=== PATIENT | female | born 1955 | race Caucasian/White ===

== ENCOUNTER → 2023-12-25 08:06 | Outpatient (REF) | payer MEDICARE, OTHER, SELFPAY | LOC: RAD 08:06 | PROVIDERS: ATTENDING PHYSICIAN Family Medicine | DX: R10.11 Right upper quadrant pain (principal) | CPT/HCPCS: 76700 ==

== ENCOUNTER → 2024-02-15 08:35 | Outpatient (REF) | payer MEDICARE, SELFPAY | LOC: SDSPAT 08:35 | PROVIDERS: ATTENDING PHYSICIAN Surgery; FAMILY PHYSICIAN Family Medicine | DX: K80.50 Calculus of bile duct without cholangitis or cholecystitis without obstruction (principal) | CPT/HCPCS: 36415; 93005 ==

== ENCOUNTER 2024-02-29 06:26 | Day surgery (SDC) | payer MEDICARE, SELFPAY ==
[2024-02-15 09:16] VITALS: BMI 22.3
[2024-02-29] VITALS (10 sets, daily range): BP systolic 107–165; BP diastolic 74–98; BMI 22.3
[2024-02-29] MEDS: TYLENOL 1000 MG PO (13:20)
[2024-02-29] MEDS: NORMOSOL-R 1000 IV (13:21)
--- NOTE | 2024-02-29 14:32 | W.SUR.PREOP ---
Pre-Operative Surgical Note
-
I have examined this patient prior to the performance of the scheduled procedure.
The patient's condition is unchanged from the time of the current History and
Physical and the patient is able to undergo the scheduled procedure.
--- NOTE | 2024-02-29 15:39 | W.IMMPOSTOP ---
Surgical Immed Post Op Note
-
Primary Surgeon: Rad Woody MD
Assisting Surgeon: None
Pre-op Diagnosis: Biliary colic
Post-op Diagnosis: Biliary colic, umbilical hernia
Procedure Performed:
1. Laparoscopic cholecystectomy with cholangiogram.
2. Open umbilical hernia repair (primary)
Anesthesia Type: General
Specimen / Cultures: Gallbladder and contents
Estimated Blood Loss: 7 cc
Complications: None
Operative Findings: 1.5 cm umbilical hernia defect containing preperitoneal fat. 12 mm Cathy placed through this opening. Critical view of safety obtained prior to cholangiogram which demonstrated no filling defects.
--- NOTE | 2024-02-29 15:41 | OR.RPT ---
Operative Report
Operative Report
Patient Name: Melanie Landon
: 1955
Date of Operation: 02/29/2024
Preoperative Diagnosis: Symptomatic Cholelithiasis
Postoperative Diagnosis: Symptomatic cholelithiasis, umbilical hernia
Procedure(s):
1. Laparoscopic Cholecystectomy With Cholangiogram
2. Open umbilical hernia repair (primary)
Surgeon(s):
Dr. Woody
Animal Control Specialist(s):
Munir Toubat
Anesthesia: General
Estimated Blood Loss: 7 cc
Urine Output: None
Drains/Lines/Implants: None
Specimens:
1. Gallbladder and contents
HPI/Surgical Indications:
This is a 68 year old female who presents with postprandial right upper quadrant abdominal pain. Ultrasound imaging concerning for gallbladder polyps however exam, labs and imaging are consistent with symptomatic cholelithiasis.
Risks/Benefits/Alternatives were discussed at length, and the patient agreed to proceed with surgery.
Findings:
The patient was noted to have a 1.5 cm umbilical hernia through which our Paul port was placed. The patient was noted to have some evidence of gallbladder inflammation noted by omental adhesions. A Critical View of Safety was obtained.
Cholangiogram showed no filling defects in the biliary system with the Left, Right Anterior, Right posterior hepatic ducts, CHD, cystic duct and CBD all identified. There was brisk flow of dye into the duodenum.
Procedure Description:
The patient was brought to the Operating Room and placed in the supine position. IV antibiotics were infused and sequential compression devices were confirmed to be on. Following uneventful induction of general endotracheal anesthesia, an
orogastric tube was placed. The abdomen was prepped and draped in the usual sterile fashion. The abdomen was entered using an infraumbilical open Cathy technique with a 12mm trochar via pre-existing 1.5 mm umbilical hernia defect.
Pneumoperitoneum to 15 mmHg pressure was obtained without difficulty and we confirmed that no injury had occurred during our entry. The patient was positioned in reverse Trendelenberg and rotated with the right side up slightly. Three (3) 5mm
trocars were then placed along the right subcostal margin. A locking grasping forceps was placed on the fundus of the gallbladder where it was then retracted cephalad and to the right. Using appropriate grasping instruments, the peritoneum overlying
the triangle of Calot was incised. The cystic duct/gallbladder junction was identified, dissected circumferentially. The cystic artery was identified medially and was dissected circumferentially. A critical view was obtained. A clip was then
placed on the cystic duct/gallbladder junction and an intraoperative cholangiogram performed using fluoroscopy, which showed good flow of dye into the duodenum. There were no intra- or extrahepatic bile duct filling defects. The biliary anatomy
appeared normal. Following completion of the cholangiogram, the catheter was removed. Two clips were then placed proximally on the cystic duct and the duct divided. Two clips were placed proximally and one distally on the cystic artery, and the
artery was divided. Remaining soft tissue attachments of the gallbladder to the liver bed were then divided using electrocautery. There was no spillage of bile or stones. The gallbladder bed was inspected and excellent hemostasis was obtained.
The gallbladder was extracted through the 12 mm trocar site using an endocatch bag. The abdomen was again irrigated and excellent hemostasis was assured. All remaining trocars were then removed and the pneumoperitoneum was evacuated. The 12 mm
trocar site was closed using a figure of 8 of 0 PDS. All trocar sites were closed at the skin level using 4-0 Monocryl followed by Dermabond. Overall, the patient tolerated the procedure well and was taken to the Recovery Room postoperatively in
stable condition.
I was the attending physician and performed the procedure with assistance from the resident above. I was present for all portions of the case
Rad Woody MD
[2024-02-29] MEDS: MORPHINE SULFATE 2 MG IV ×2 (16:23→16:50)
== END 2024-02-29 18:00 | disposition home or self-care (01) ==
LOC: SDS 06:26
PROVIDERS: ATTENDING PHYSICIAN Surgery; FAMILY PHYSICIAN Family Medicine
DX: K81.1 Chronic cholecystitis (principal); K42.9 Umbilical hernia without obstruction or gangrene; K66.0 Peritoneal adhesions (postprocedural) (postinfection)
CPT/HCPCS: 47563; 49591; 88304; 74300; 76000

== ENCOUNTER → 2024-05-03 09:16 | Outpatient (REF) | payer MEDICARE, SELFPAY | LOC: RAD 09:16 | PROVIDERS: ATTENDING PHYSICIAN Family Medicine | DX: M25.511 Pain in right shoulder (principal) | CPT/HCPCS: 73030 ==